=== PATIENT | female | born 1960 | race Caucasian/White ===

== ENCOUNTER → 2017-09-16 | Outpatient (CLI) | payer OTHER ==
[2017-09-16 12:45] VITALS: BP 102/69; PULSE 91; RESP 18; TEMP 98.2
--- NOTE | 2017-09-16 13:23 | P.HPIM ---
History of Present Illness H&P Date: 09/16/17 Chief Complaint: sacral and coccyx pain This is a 56-year-old patient referred by Dr. Mauricio for chronic pain in low back /hip and tailbone area that has persisted since an accident many years ago. Patient is repeatedly tearful in office describing her coccygeal pain. Patient has been taking medications from primary care physician including rare [place] and Tylenol medications with some relief, although she believes the [place] has recently begun to make her more agitated and upset. Patient denies adverse drug effects from medications. Patient also denies new-onset weakness, bowel/ bladder incontinence, or any other signs or symptoms of cauda equina syndrome. There are no signs of acute intoxication, and no indications of medication diversion or overuse. Patient notes that pain worsens significantly with standing for long periods of time and improves with rest and medication and lidocaine patches. Patient has used several types of medications for pain, including NSAIDS, OPIOIDS ([place]). Patient HAS NOT had surgery. Patient HAS NOT had injections in her spine previously. Patient HAS NOT had physical therapy recently. In addition to above, 13-point review of systems is also negative for chest pain , shortness of breath, changes in vision, changes in hearing, new onset weakness , abdominal pain, diarrhea, extreme fatigue, malaise, fever, skin changes, homicidal or suicidal ideation, or bowel or bladder incontinence. Vital Signs: Reviewed in EMR Gen: WDWN, AAOx3, NAD HEENT: NCAT, EOMI, hearing grossly normal Pulm: resp unlabored Abd: soft, NT, ND Neck: supple, trachea midline ROM in flexion lumbar spine: reduced ROM in extension lumbar spine: reduced Lumbar paravertebral tenderness: + Facet loading: + bilateral SI joint tenderness: +R side Alexandru's test: + R >> L Straight leg raise: neg Neuro: CN II-XII grossly intact, muscle strength lower extremities PRESERVED Past Medical History Smoking Status: Current every day smoker Medications and Allergies Home Medications Medication Instructions Recorded Confirmed Type Diclofenac Sodium Gel [Voltaren 4 gm TOPICAL QID PRN #1 tub 09/16/17 Rx Gel] Allergies Allergy/AdvReac Type Severity Reaction Status Date / Time hydromorphone [From Dilaudid] AdvReac Vomiting Verified 09/16/17 12:27 prednisone AdvReac Confusion Verified 09/16/17 12:28 Physical Exam Vitals: Vital Signs Temp Pulse Resp BP Pulse Ox 09/16/17 12:28 98.2 F 91 18 102/69 100 Intake and Output 09/15/17 09/16/17 09/16/17 22:59 06:59 14:59 Other: Weight 66.224 kg Patient Weight 09/17/17 06:59 Weight 66.224 kg Results Comments: MRI pelvis and without contrast dated 08/28/2017 demonstrates moderate facet arthrosis incidentally noted at L4-L5 and L5-S1 with proximal hamstring insertion tendinosis and peritendinitis bilaterally. The sacroiliac joints are preserved pelvic bones are intact there is no pelvic masses adenopathy or fluid collection noted. Assessment and Plan (1) Coccyodynia Current Visit: Yes Status: Chronic Code(s): M53.3 - SACROCOCCYGEAL DISORDERS , NOT ELSEWHERE CLASSIFIED SNOMED Code(s): 16872992 (2) SI (sacroiliac) joint dysfunction Current Visit: Yes Status: Chronic Code(s): M53.3 - SACROCOCCYGEAL DISORDERS , NOT ELSEWHERE CLASSIFIED SNOMED Code(s): 076218793 Plan: 1. Explanation: Opioid and psychological risk scores were reviewed. Diagnoses , prognoses, and multiple treatment options including but not limited to physical therapy, interventional therapies, adjuvant medical therapies, narcotic medication therapies, and surgery were discussed with the patient and all questions were answered to the patient's satisfaction. 2. Opioid agreement: no opioids prescribed today 3. Counseling: The patient was counseled extensively on SMOKING CESSATION, BODY MASS INDEX, EXERCISE. Specifically, the patient was instructed regarding the importance of smoking cessation, weight control, and exercise in the context of both chronic pain and overall health. 4. Procedures: ganglion of impar block, consider SIJ injections in future 5. Consultations: none 6. Investigations: none 7. Medications: Voltaren gel 8. Disposition: f/u for procedure as scheduled PQRS measures: 1-Patient's medications are documented in the chart. 2-Tobacco use is positive, counseling given 3-Patient has not had a pneumococcal vaccine. 4-Advanced care planning discussed, patient unable to give. 5-Opioid contract NOT signed with the patient. 6-Pain positive, follow-up visit or procedure scheduled 7-Patient's blood pressure measured and documented, and patient will follow up with the primary care due to hypertension. 8-Patient's weight was measured, and body mass index ABOVE the normal limits, and counseling was done. Patient instructed to follow up with PCP. 9-Patient WAS NOT identified as an unhealthy alcohol user.
== END | disposition home or self-care (01) ==
LOC: PNWHC3 12:21
PROVIDERS: ATTEND Anesthesiology
DX: G89.29 Other chronic pain (principal); M53.3 Sacrococcygeal disorders, not elsewhere classified; F17.200 Nicotine dependence, unspecified, uncomplicated; Z79.891 Long term (current) use of opiate analgesic; Z79.899 Other long term (current) drug therapy; Z88.8 Allergy status to other drugs, medicaments and biological substances; Z88.5 Allergy status to narcotic agent; Z71.6 Tobacco abuse counseling
CPT/HCPCS: 99211

== ENCOUNTER 2017-09-25 07:20 | Day surgery (SDC) | payer OTHER ==
[~2017-09-25 07:20] MED LIST: LACTATED RINGERS 1,000 ML IV SCH
[2017-09-25 07:55] VITALS: TEMP 97.9
[2017-09-25] MEDS ORDERED: LIDOCAINE 1% 20 ML VIAL (10MG/ML) FOR IV START INTRADERMA ONE (08:08)
--- NOTE | 2017-09-25 08:52 | P.PCN ---
Date of Procedure: 09/25/17 Surgeon: Tani Escobar Description of Procedure: PREOP DIAGNO Coccydynia POSTOP DIAGNOSIS: Coccydynia PROCEDURE: Ganglion impar block with fluoroscopic guidance ANESTHESIA: Local with 1% lidocaine; IV sedation with Versed and fentanyl. EBL:None. PROCEDURE DESCRIPTION: The patient was seen and identified in the preoperative area. Risks, benefits, complications, and alternatives were discussed with the patient. The patient agreed to proceed with the procedure and signed the consent. IV was started, and vital signs were stable. Patient was taken to the OR and time out was completed. The patient was placed in the prone position on procedure table and a pillow was placed under the abdomen to reduce lumbar lordosis.The lumbosacral area was prepped and draped in the usual sterile fashion. Critical pause was taken. Vital signs were closely monitored during the procedure. Using crosstable lateral view, the sacrococcygeal joint was identified and localized with 1% lidocaine. A 22-gauge/25-guage 3-1/2 inch needle was inserted through the sacrococcygeal ligament and advanced to the anterior aspect of the joint guided by pam-posterior and lateral fluoroscopy. Correct needle position was verified by injecting 2 ml of water soluble dye, Omnipaque 300, and observing a spread along the anterior side of the sacro-coccygeal ligament. After negative aspiration of CSF, blood, and no paresthesias, 5 mL of block solution containing 4mL of 0.5%preservative-free bupivacaine and kenalog 40 mg was injected. Needle was withdrawn intact. Skin was cleansed and bandages were applied. COMPLICATIONS: None. COMMENTS: DISPOSITION / PLANS: The patient was placed in a supine position and transferred to the recovery area in a stable condition for observation. Patient was discharged from the recovery room after meeting discharge criteria. Discharge instructions given to the patient by the staff. The patient was reexamined prior to discharge. The patient will schedule a follow up in the clinic in 2-4 weeks.
[2017-09-25] MEDS ORDERED: IV FLUID CONTINUATION 800 ML IV ONE (08:56)
[2017-09-25 09:04] VITALS: RESP 18
--- NOTE | 2017-09-25 09:26 | FL ---
Fluoroscopy INDICATION: Pain FINDINGS: Fluoroscopy time: 21 seconds. Images obtained: 3. IMPRESSIONS: 1. Documentation of fluoroscopy.
[2017-09-25 09:29] VITALS: BP 136/71; PULSE 71
== END 2017-09-25 09:42 | disposition home or self-care (01) ==
LOC: ORPAIN 07:20
PROVIDERS: ATTEND Anesthesiology
DX: G89.29 Other chronic pain (principal); M53.3 Sacrococcygeal disorders, not elsewhere classified; Z88.5 Allergy status to narcotic agent; Z88.8 Allergy status to other drugs, medicaments and biological substances; Z79.1 Long term (current) use of non-steroidal anti-inflammatories (NSAID)
CPT/HCPCS: 64999; J2250; J3301; Q9965; J3010; 99152

== ENCOUNTER 2017-10-23 06:14 | Day surgery (SDC) | payer OTHER ==
[2017-10-16 16:22] VITALS: BMI 24.0
[2017-10-23 07:20] VITALS: RESP 16; TEMP 97.6
[2017-10-23 07:23] LABS: Glucose,Whole Blood 80 mg/dL (75-99)
[2017-10-23] MEDS ORDERED: IV FLUID CONTINUATION 1,000 ML IV ONE (08:00)
--- NOTE | 2017-10-23 08:09 | P.PCN ---
Date of Procedure: 10/23/17 Procedure(s) Performed: Preoperative diagnoses= 1-coccyodynia 2-bilateral sacroiliac joint dysfunction. Postoperative diagnoses= same as preoperative diagnosis. Procedure= bilateral sacroiliac joint steroid injection under fluoroscopic guidance. Anesthesia= moderate sedation with Versed 2 mg and fentanyl 100 micrograms and local infiltration with lidocaine 1% 4 ml Estimated blood loss=minimal. Procedure indication= the patient had a history of severe chronic low back pain , and coccyx pain diagnosed with sacroiliac joint dysfunction ,unresponsive to conservative treatment. Procedure description= the patient was seen and identified in the preoperative holding area, risks and benefits and alternative of the procedure and possible complications discussed with the patient, and he agreed with the preceding, patient signed the consent, an IV was started, and vital signs were monitored and were stable throughout the procedure, patient was placed in the prone position or table and the lumbosacral area was prepped and draped with a sterile fashion, vital signs were closely monitored during the procedure, the fluoroscopy camera was placed in the contralateral oblique view on the right sacroiliac joint and the lower part of the joint was identified, local infiltration of the skin and subcutaneous tissue with lidocaine 1% 2 mL then a 22-gauge Quincke-type spinal needle advanced slowly under fluoroscopy and placed in the posterior and inferior border of the right sacroiliac joint, placement confirmed with AP and lateral view, and after appropriate needle placement confirmed and after negative aspiration for heme and CSF and there was no paresthesia during the injection, 3 ml of Marcaine 0.5% and 40 mg of Kenalog injected after negative aspiration, the needle removed, and the entire same procedure was repeated for the left sacroiliac joint Patient tolerated the procedure well without any complication, The patient returned to supine position after the back was cleaned and a Band- Aid applied, the patient transported to recovery room in stable condition and he was monitored for 30 minutes before he was discharged home and then patient was reexamined before going home and patient was discharged in stable condition and patient will follow up with the pain clinic in a few weeks
--- NOTE | 2017-10-23 08:22 | FL ---
EXAMINATION TYPE: FL guided pain mgmt statistic DATE OF EXAM: 10/23/2017 FLUOROSCOPY Fluoroscopy time of 12 seconds was used during bilateral SI joint injection. 2 image/s document/s th e procedure.
[2017-10-23 08:25] VITALS: BP 106/63; PULSE 71
== END 2017-10-23 08:38 | disposition home or self-care (01) ==
LOC: ORPAIN 06:14
PROVIDERS: ATTEND Specialist
DX: G89.29 Other chronic pain (principal); M53.3 Sacrococcygeal disorders, not elsewhere classified; Z88.5 Allergy status to narcotic agent; Z88.8 Allergy status to other drugs, medicaments and biological substances
CPT/HCPCS: J2250; J3301; J3010; G0260; 99152

== ENCOUNTER → 2017-12-11 | Outpatient (CLI) | payer OTHER ==
--- NOTE | 2017-12-11 15:11 | P.PAINPG ---
Subjective Progress Note Date: 12/11/17 Principal diagnosis: Bilateral buttocks and low back pain Objective - Vital Signs Vital signs: Intake & Output 12/10/17 12/11/17 12/11/17 18:59 06:59 18:59 Weight 64.41 kg - Exam This is a 67-year-old woman with a history of buttocks pain. She is undergone previous ganglion impar blockade as well as bilateral sacroiliac joint blockade. She reports that both of these were very helpful for her. She reports her pain is under pretty good control this time. She does receive medication management from another office. - Constitutional Constitutional Comment(s): General: The patient is alert and oriented. Patient is not sedateded Patient is a question appropriately. Cardiac: Heart is regular in rate and rhythm Respiratory: Clear to auscultation. No audible wheezes. Abdomen: Soft nontender nondistended. Lower extremities: Strength is normal bilaterally. Sensation is normal bilaterally. Reflexes are preserved and symmetric bilaterally. Straight leg raise is negative bilaterally. She is tender to palpation bilaterally over her sacroiliac joints. She is also mildly tender over her coccyx. Minimal tenderness over the facet joints bilaterally. Assessment and Plan (1) Coccyodynia Current Visit: No Status: Chronic Code(s): M53.3 - SACROCOCCYGEAL DISORDERS , NOT ELSEWHERE CLASSIFIED SNOMED Code(s): 30383918 (2) SI (sacroiliac) joint dysfunction Narrative/Plan: Plan of Care 1. Medications: Patient does not receive medications from this office. 2. Interventions: He will call our office in the future if she wishes to repeat either her ganglion impar blockade or her bilateral sacroiliac joint injections. She also has a history of coccydynia. If this is bothering her she could be seen for a bilateral coccygeal nerve block with possible follow-up radio frequency ablation 3. Referrals: None 4. Testing: None 5. Psychological: Patient denies significant anxiety or depression but does voice substantial frustration with multiple providers in the health system. Current Visit: No Status: Chronic Code(s): M53.3 - SACROCOCCYGEAL DISORDERS , NOT ELSEWHERE CLASSIFIED SNOMED Code(s): 625792998 PQRS Measure Charge Sheet Measure #130: Documentation of Current Meds in Medical Chart: Patient's medications documented in chart Measure #226: Tobacco Use: Screen & Cessation Intervention: Pt screened for tobacco use AND intervention given Measure #111: Pneumonia Vaccination: Pneumococcal vaccine NOT administered or previously given Measure #47: Advance Care Plan: Advance care planning discussed & documented, pt chose/unable to give Measure #412: Opioid Treatment Agreement: No documentation of signed opioid treatment agreement Measure #408: Opioid Therapy Follow-up Evaluation: Patient had NO f/u eval minimum every 3 months during opioid therapy Measure #317: Preventitive Care & Scrn High Bld Press & F/U: Normal blood pressure, f/u not required Measure #128: Body Mass Index (BMI) Screening & Follow-up: BMI documented within normal parameters Measure #431: Unhealthy Alcohol Use Preventative Care & Scrn: Patient not identified as an unhealthy alcohol user PQRS Narrative: Smoking Status Current every day smoker Hx Alcohol Use (MH) No Home Medications: Ambulatory Orders ALPRAZolam [Xanax] 0.5 mg PO QID 09/16/17 Acetaminophen [Tylenol Extra Strength] 500 mg PO BID 09/16/17 Celecoxib [CeleBREX] 200 mg PO DAILY 09/16/17 Cholecalciferol [Vitamin D3] 2,000 tab PO DAILY 09/16/17 Diclofenac Sodium Gel [Voltaren Gel] 4 gm TOPICAL QID PRN #1 tub 09/16/17 Gabapentin [Neurontin] 600 mg PO BID 09/16/17 L.acidoph,Paracasei, B.lactis [Probiotic] 2 cap PO BID 09/16/17 Levothyroxine Sodium 100 mcg PO DAILY 09/16/17 Ondansetron [Zofran] 4 mg PO Q6HR PRN 09/16/17 Primidone [Mysoline] 25 mg PO BID 09/16/17 tiZANidine [Zanaflex] 4 mg PO DAILY 09/16/17 oxyCODONE-APAP 5-325MG [Percocet 5-325 mg] 1 tab PO Q8HR PRN 12/11/17 Controlled Substance Measures - Controlled Substance Measures Is patient prescribed a controlled substance at discharge?: No
[2017-12-11 15:30] VITALS: BP 109/70; PULSE 81; RESP 16
== END | disposition home or self-care (01) ==
LOC: PNWHC3 14:38
PROVIDERS: ATTEND Pain Medicine Pain Medicine
DX: M53.3 Sacrococcygeal disorders, not elsewhere classified (principal); F17.200 Nicotine dependence, unspecified, uncomplicated; Z79.899 Other long term (current) drug therapy; Z79.1 Long term (current) use of non-steroidal anti-inflammatories (NSAID)
CPT/HCPCS: 99211

== ENCOUNTER 2018-02-16 09:34 | Day surgery (SDC) | payer OTHER ==
[2018-02-09 15:23] VITALS: BMI 24.0
[2018-02-16 10:01] VITALS: RESP 16; TEMP 97.7
[2018-02-16 10:11] LABS: Glucose,Whole Blood 99 mg/dL (75-99)
--- NOTE | 2018-02-16 11:05 | P.PCN ---
Date of Procedure: 02/16/18 Surgeon: Tani Escobar Pathology: none sent Condition: stable Disposition: PACU Description of Procedure: Preoperative diagnoses= 1-bilateral sacroiliitis. 2-bilateral sacroiliac joint dysfunction. Postoperative diagnoses= same as preoperative diagnosis. Procedure= bilateral sacroiliac joint steroid injection under fluoroscopic guidance. Anesthesia= conscious sedation with Versed and fentanyl and local infiltration with lidocaine 1% 4 ml Estimated blood loss=minimal. Procedure indication= the patient had a history of severe chronic low back pain , diagnosed with sacroiliitis and lumbar sacral facet arthropathy unresponsive to conservative treatment. Procedure description= the patient was seen and identified in the preoperative holding area, risks and benefits and alternative of the procedure and possible complications discussed with the patient, patient signed the consent. an IV was started, and vital signs were monitored and were stable throughout the procedure , patient was placed in the prone position or table and the lumbosacral area was prepped and draped with a sterile fashion, vital signs were closely monitored during the procedure.The right sacroiliac joint was identified on the AP view of fluoroscopy then the C-arm was tilted to the left oblique position to superimpose the anterior and posterior joint lines on each other and to have a unified joint line with the target point at the inferior one third of this line. I used 22-gauge 3-1/2 inch Quincke spinal needle for this procedure and after getting into the sacroiliac joint I injected 20 mg of Kenalog +2.5 MLS of Ropivacaine 0.5%. The same procedure was repeated on the left side by tilting the C-arm to the right oblique position this time. At the target point was also at the inferior one third of this unified joint line. Using a 22-gauge 3-1 /2 inch Quincke spinal needle I injected 20 mg of Kenalog plus 2.5 MLS of Ropivacaine 0.5%. Patient tolerated the procedure well without any complication, The patient returned to supine position after the back was cleaned and a Band- Aid applied, the patient transported to recovery room in stable condition and he was monitored for 30 minutes before he was discharged home and then patient was reexamined before going home and patient was discharged in stable condition and patient will follow up with the pain clinic in a few weeks
[2018-02-16] MEDS ORDERED: IV FLUID CONTINUATION 1,000 ML IV ONE (11:10)
[2018-02-16 11:29] VITALS: BP 106/68; PULSE 71
--- NOTE | 2018-02-16 11:34 | FL ---
EXAMINATION TYPE: FL guided pain mgmt statistic DATE OF EXAM: 02/16/2018 CLINICAL HISTORY: Sacroiliac joint pain. TECHNIQUE: Fluoroscopy. COMPARISON: None. FINDINGS: Fluoroscopic guidance was provided during pain relief procedure performed by Dr. Escobar . A total of 27 seconds of fluoroscopic time was utilized during the procedure and single spot fluoro scopic image is acquired. Single image acquired shows needle localization at inferior aspect of susp ected right sacroiliac joint. IMPRESSION: As Above.
== END 2018-02-16 11:47 | disposition home or self-care (01) ==
LOC: ORPAIN 09:34
PROVIDERS: ATTEND Anesthesiology
DX: M46.1 Sacroiliitis, not elsewhere classified (principal); G89.29 Other chronic pain; F17.200 Nicotine dependence, unspecified, uncomplicated; F41.9 Anxiety disorder, unspecified; M53.3 Sacrococcygeal disorders, not elsewhere classified
CPT/HCPCS: J2250; J3301; J3010; G0260

== ENCOUNTER 2018-04-07 14:04 | Emergency (ER) | payer OTHER ==
[2018-04-07 14:16] VITALS: BP 118/74; PULSE 98; RESP 16; TEMP 98.3
--- NOTE | 2018-04-07 15:24 | ED ---
Recheck HPI - General Chief Complaint: Recheck/Abnormal Lab/Rx Stated Complaint: med refill Time Seen by Provider: 04/07/18 14:21 Source: patient, RN notes reviewed Mode of arrival: ambulatory Limitations: no limitations - History of Present Illness Initial Comments: This is a 57-year-old female who presents to the emergency department with request for medication refill. Patient states that her primary care provider was prescribing her [place] and Xanax. Patient states that she has been on Xanax for 23 years. She states that on March 30 she received a letter in the mail stating that she was being discharged from her primary care provider's care. Patient did not understand why and did not realize that her medications would not be refilled. She states that she took her last Xanax today. She states that she has set up an appointment with a new primary care provider for this . She is very anxious about being out of her medications as she does not want to go into withdrawals. Patient states that she has always been honest and forthcoming with her medical history and the medication she takes. She states that she was told by the uniform patrol police officer of her primary care provider' s office that she misled them in regards to her pain management. Patient does admit to seeing Dr. Mauricio, orthopedic back surgeon, however does not receive any narcotic prescriptions through him. Patient states that she does have chronic back pain and has taken [place] for years and that she is not a candidate for back surgery. Denies fever, chills, chest pain, shortness of breath, abdominal pain, nausea or vomiting, numbness or tingling, headache or vision changes. - Related Data Home Medications Medication Instructions Recorded Confirmed ALPRAZolam [Xanax] 0.5 mg PO QID 09/16/17 02/09/18 Acetaminophen [Tylenol Extra 500 mg PO BID PRN 09/16/17 02/16/18 Strength] Celecoxib [CeleBREX] 200 mg PO DAILY 09/16/17 02/09/18 Cholecalciferol [Vitamin D3] 2,000 tab PO HS 09/16/17 02/09/18 Gabapentin [Neurontin] 600 mg PO QID 09/16/17 02/09/18 L.acidoph,Paracasei, B.lactis 2 cap PO BID 09/16/17 02/09/18 [Probiotic] Levothyroxine Sodium 100 mcg PO DAILY 09/16/17 02/09/18 Ondansetron [Zofran] 4 mg PO Q6HR PRN 09/16/17 02/09/18 Primidone [Mysoline] 25 mg PO BID 09/16/17 02/09/18 tiZANidine [Zanaflex] 4 mg PO DAILY 09/16/17 02/09/18 Cranberry Fruit Extract [Cranberry] 200 mg PO BID 02/09/18 02/09/18 Previous Rx's Medication Instructions Recorded Diclofenac Sodium Gel [Voltaren 4 gm TOPICAL QID PRN #1 tub 09/16/17 Gel] ALPRAZolam [Xanax] 0.5 mg PO QID 3 Days #6 tab 04/07/18 Allergies Allergy/AdvReac Type Severity Reaction Status Date / Time hydromorphone [From Dilaudid] AdvReac Vomiting Verified 02/16/18 10:03 prednisone AdvReac Confusion Verified 02/16/18 10:03 Review of Systems ROS Statement: Those systems with pertinent positive or pertinent negative responses have been documented in the HPI. ROS Other: All systems not noted in ROS Statement are negative. 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 Pleasant. HEENT: Head atraumatic, normocephalic. Pupils are equal, round and reactive to light. Extraocular movements intact. Oropharynx moist without erythema or exudate. Neck: Supple. Normal ROM. Cardiovascular: Regular rate and rhythm. No murmurs, rubs or gallops. Chest symmetrical. Respiratory: Lungs clear to auscultation bilaterally. No wheezes, rales or rhonchi. Normal respiratory effort with no use of accessory muscles. Musculoskeletal: Normal ROM, no tenderness bilateral upper and lower extremities. Ambulating normally. Skin: [place], warm and dry without rashes or lesions. Neurological: Alert and oriented x3. CN II-XII grossly intact. Speech is fluent and answers are appropriate. No focal neuro deficits. Psychiatric: Anxious and tearful. Limitations: no limitations Course Vital Signs 04/07/18 14:10 Temperature 98.3 F Pulse Rate 98 Respiratory 16 Rate Blood Pressure 118/74 O2 Sat by Pulse 98 Oximetry Medical Decision Making - Medical Decision Making This is a 57-year-old pleasant female who presents to the emergency department with request for medication refill. Patient has been on Xanax for 23 years and states that she was abruptly discharged from her primary care provider's care. She did not realize that her prescription for Xanax would not be refilled. Patient is anxious, tearful and panicky. She is nervous that she is going to go into withdrawals. She does have an appointment scheduled this with a new primary care provider's office. I educated patient about the new laws regarding controlled substances. I will provide patient with a 3 day supply of Xanax until she is able to follow-up with her new primary care provider. Patient is in agreement with this and voices understanding. Vitals are stable and she is no acute distress. She will be discharged home at this time. All questions were answered. Disposition Clinical Impression: Encounter for medication refill Disposition: HOME SELF-CARE Condition: Good Instructions: Alprazolam (By mouth) Additional Instructions: Please take medications as prescribed. As discussed, please follow-up with your new primary care provider as scheduled. Return to emergency department if symptoms should worsen or any concerns arise. Prescriptions: ALPRAZolam [Xanax] 0.5 mg PO QID 3 Days #6 tab Is patient prescribed a controlled substance at d/c from ED?: Yes When asked, does pt state using other controlled substances?: Yes If prescribed controlled substance>3 days was MAPS reviewed?: Prescribed <3 Days Referrals: Casper Yeager DO [Primary Care Provider] - 1-2 days Time of Disposition: 15:24
== END 2018-04-07 15:33 | disposition home or self-care (01) ==
LOC: EC 14:04
DX: Z76.0 Encounter for issue of repeat prescription (principal); F41.9 Anxiety disorder, unspecified; F17.200 Nicotine dependence, unspecified, uncomplicated; M54.9 Dorsalgia, unspecified; G89.29 Other chronic pain; M19.90 Unspecified osteoarthritis, unspecified site; E07.9 Disorder of thyroid, unspecified; Z85.72 Personal history of non-Hodgkin lymphomas; Z92.21 Personal history of antineoplastic chemotherapy; Z79.1 Long term (current) use of non-steroidal anti-inflammatories (NSAID); Z79.899 Other long term (current) drug therapy; Z88.5 Allergy status to narcotic agent; Z88.8 Allergy status to other drugs, medicaments and biological substances
CPT/HCPCS: 99281

== ENCOUNTER → 2018-04-21 | Outpatient (CLI) | payer OTHER ==
[2018-04-21 12:32] VITALS: BP 122/82; PULSE 109; RESP 18
--- NOTE | 2018-04-21 15:39 | P.PN ---
Subjective Progress Note Date: 04/21/18 This is a follow-up visit for this 57 years old female with a chronic history of severe low back pain diagnosed with coccygeal tenia and sacroiliac joint dysfunction, with done ganglion impar block and later on we did bilateral sacroiliac joint steroid injection, she reported that she had very short-term benefits from each injection, he continued to have severe low back pain, pain interfere with her quality of life and preventing her from doing activities of daily livings, and report that she is planning to follow up with different pain clinic, they can provide her with pain medication , because of our clinic. We do only interventional pain management Objective - Vital Signs Vital signs: Vital Signs Temp Pulse 109 H 04/21/18 12:18 Resp 18 04/21/18 12:18 BP 122/82 04/21/18 12:18 Pulse Ox 97 04/21/18 12:18 Intake & Output 04/20/18 04/21/18 04/21/18 18:59 06:59 18:59 Weight 61.689 kg - Exam Physical Examinations : 1-Constitutiona : Cooperative , not in acute distress . 2-HEENT : nech ; supple , no Lymphadenopathy , normal thyroid size . eyes : no ptosis , no icterus, no photophobia . ENT : normal of hearing , normal oropharynx , no Thrush . 3- Respiratory : Chest clear to auscultations Bilaterally , no wheezing , no Rhonchi . 4- Cardiovascular : regular rate and rhythem , S1 , S2 , no S3 , no S4. 5- Gastrointestinal : abdomen soft no tenderness , bowel sounds , no organomegally . 6- Genitourinary : Defferred . 7- neurologic : Cranial nerve II to XII intact , no focal neurological deffecit . 8-psychatric : alert , oriented X 3 , appropriate affect , intact judgment and insight . 9-Lymphatic : no Lymphadenopathy . 10- musculoskeltal : Lumber spine moter stegnth lower extremities , thigh and legs 5/5 Right side , 5/5 Left side deep tendon reflexes : normal Knee Jerk , normal ankle Jerk positive lumber facet Loading Test Sever tenderness over the Sacroiliac joint on the R and L sides sever tenderness over the coccyx area Assessment and Plan Plan: Assessment and plan= coccyodynia , billateral sacroiliac joint dysfunction Patient had short-term benefit from sacroiliac joint steroid injection and from ganglion impar block She doesn't want to proceed with any further interventional pain management, she went to get medication management only Patient wished to go to a different pain clinic to get medication management Time with Patient: Less than 30
== END | disposition home or self-care (01) ==
LOC: PNWHC3 12:05
PROVIDERS: ATTEND Specialist
DX: M53.3 Sacrococcygeal disorders, not elsewhere classified (principal); Z98.890 Other specified postprocedural states
CPT/HCPCS: 99211

== ENCOUNTER 2018-06-08 16:45 | Emergency (ER) | payer OTHER ==
[2018-06-08 17:01] VITALS: BP 116/55; PULSE 100; RESP 18; TEMP 98.2
--- NOTE | 2018-06-08 19:14 | ED ---
General Adult HPI - General Chief complaint: Recheck/Abnormal Lab/Rx Stated complaint: med refill Time Seen by Provider: 06/08/18 18:15 Source: patient, RN notes reviewed Mode of arrival: ambulatory Limitations: no limitations - History of Present Illness Initial comments: 57-year-old female presents to the emergency Department for a medication refill. Patient states she recently changed primary care physicians who adjusted her medications. Patient states she called the pharmacy for her refill of Valium and was told no prescription was sent by her primary care physician. She then called her primary care physician who cannot see her until next Friday and is unable to fill a prescription until that time. She was told to come to the emergency department for refill. Patient has no other complaints at this time including shortness of breath, chest pain, abdominal pain, nausea or vomiting, headache, or visual changes. - Related Data Home Medications Medication Instructions Recorded Confirmed Celecoxib [CeleBREX] 200 mg PO DAILY 09/16/17 04/21/18 Cholecalciferol [Vitamin D3] 2,000 tab PO HS 09/16/17 04/21/18 Gabapentin [Neurontin] 600 mg PO QID 09/16/17 04/21/18 L.acidoph,Paracasei, B.lactis 2 cap PO BID 09/16/17 04/21/18 [Probiotic] Levothyroxine Sodium 100 mcg PO DAILY 09/16/17 04/21/18 Ondansetron [Zofran] 4 mg PO Q6HR PRN 09/16/17 04/21/18 Primidone [Mysoline] 25 mg PO BID 09/16/17 04/21/18 Cranberry Fruit Extract [Cranberry] 200 mg PO BID 02/09/18 04/21/18 Diazepam [Valium] 1 tab PO TID 04/21/18 04/21/18 Docusate [Colace] 1 cap PO DAILY PRN 04/21/18 04/21/18 HYDROcodone/APAP 5-325MG [[place] 1 tab PO TID 04/21/18 04/21/18 5-325] Lidocaine [Aspercreme Patch] 1 patch TOPICAL DAILY PRN 04/21/18 04/21/18 Previous Rx's Medication Instructions Recorded Diclofenac Sodium Gel [Voltaren 4 gm TOPICAL QID PRN #1 tub 09/16/17 Gel] ALPRAZolam [Xanax] 0.5 mg PO QID 3 Days #6 tab 04/07/18 Diazepam [Valium] 5 mg PO TID PRN 3 Days #9 tab 06/08/18 Allergies Allergy/AdvReac Type Severity Reaction Status Date / Time acetaminophen [From Percocet] Allergy Chest Pain Verified 06/08/18 17:01 oxycodone [From Percocet] Allergy Chest Pain Verified 06/08/18 17:01 hydromorphone [From Dilaudid] AdvReac Vomiting Verified 06/08/18 17:01 prednisone AdvReac Confusion Verified 06/08/18 17:01 Review of Systems ROS Statement: Those systems with pertinent positive or pertinent negative responses have been documented in the HPI. ROS Other: All systems not noted in ROS Statement are negative. 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 History of Any Multi-Drug Resistant Organisms: None Reported Past Surgical History: Breast Surgery, Hysterectomy Additional Past Surgical History / Comment(s): breast reduction, access port for chemo then removed Past Anesthesia/Blood Transfusion Reactions: No Reported Reaction Past Psychological History: Anxiety Smoking Status: Current every day smoker Past Alcohol Use History: None Reported Past Drug Use History: Marijuana - Past Family History Mother History Unknown: Yes Family Medical History: No Reported History General Exam Limitations: no limitations General appearance: alert, in no apparent distress Head exam: Present: atraumatic, normocephalic, normal inspection Eye exam: Present: normal appearance, PERRL, EOMI. Absent: scleral icterus, conjunctival injection, periorbital swelling ENT exam: Present: normal exam, mucous membranes moist Neck exam: Present: normal inspection, full ROM. Absent: tenderness, meningismus, lymphadenopathy Respiratory exam: Present: normal lung sounds bilaterally. Absent: respiratory distress, wheezes, rales, rhonchi, stridor Cardiovascular Exam: Present: regular rate, normal rhythm, normal heart sounds. Absent: systolic murmur, diastolic murmur, rubs, gallop, clicks Neurological exam: Present: alert, oriented X3, CN II-XII intact Psychiatric exam: Present: anxious Course Vital Signs 06/08/18 16:57 Temperature 98.2 F Pulse Rate 100 Respiratory 18 Rate Blood Pressure 116/55 O2 Sat by Pulse 98 Oximetry Medical Decision Making - Medical Decision Making 57-year-old female presents to the emergency department for a chief complaint medication refill. Patient is out of her Valium. She recently switched prescribers and was not aware she needed to make another appointment to have a refill. Exam is benign. Vitals are stable. Patient will be given a three-day supply of Valium. I discussed with patient that she needs to follow-up with her primary for any additional refills. She states she will follow up next Friday when her primary is back in the office. She states she is not sure what she will do for the rest of the week. I stated she would likely not receive another refill from this emergency department and patient is aware. Disposition Clinical Impression: Encounter for medication refill Disposition: HOME SELF-CARE Condition: Good Instructions: Medicine Refill (ED) Additional Instructions: Please follow up with primary care for additional medication refills. Please return to the emergency department if you have any other concerns. Prescriptions: Diazepam [Valium] 5 mg PO TID PRN 3 Days #9 tab PRN Reason: Anxiety Is patient prescribed a controlled substance at d/c from ED?: Yes When asked, does pt state using other controlled substances?: Yes If prescribed controlled substance>3 days was MAPS reviewed?: Prescribed <3 Days Referrals: Casper Yeager DO [Primary Care Provider] - 1-2 days Time of Disposition: 19:12
== END 2018-06-08 19:20 | disposition home or self-care (01) ==
LOC: EC 16:45
DX: Z76.0 Encounter for issue of repeat prescription (principal); M19.90 Unspecified osteoarthritis, unspecified site; E07.9 Disorder of thyroid, unspecified; F41.9 Anxiety disorder, unspecified; F17.200 Nicotine dependence, unspecified, uncomplicated; Z85.72 Personal history of non-Hodgkin lymphomas; Z92.21 Personal history of antineoplastic chemotherapy; Z90.710 Acquired absence of both cervix and uterus; Z98.890 Other specified postprocedural states; Z79.1 Long term (current) use of non-steroidal anti-inflammatories (NSAID); Z79.891 Long term (current) use of opiate analgesic; Z79.899 Other long term (current) drug therapy; Z88.5 Allergy status to narcotic agent; Z88.8 Allergy status to other drugs, medicaments and biological substances
CPT/HCPCS: 99281

== ENCOUNTER 2018-08-25 17:11 | Emergency (ER) | payer BC, OTHER ==
--- NOTE | 2018-08-25 20:03 | ED ---
General Adult HPI - General Chief complaint: Recheck/Abnormal Lab/Rx Stated complaint: palpitations/SOB Time Seen by Provider: 08/25/18 19:40 Source: patient Mode of arrival: wheelchair Limitations: no limitations - History of Present Illness Initial comments: This 57-year-old white female presents with a complaint of developing some palpitations lists started this morning. She states that she had a fluttering type sensation in her chest. She also felt somewhat short of breath and then relates that she's had some chest burning intermittently over the past 2 days. She has a long history of anxiety and thought that this could be related to anxiety and states that she took an extra Xanax medication. She now states that the palpitations have been easing up. She does not have any chest pain currently. She has multiple complaints and these do include a chronic problem of some abdominal pain and bloating for which she is being followed up with her primary care physician for. Her symptoms have been unchanged and she is instructed to continue with her follow-up through primary care. She apparently is to have a pelvic ultrasound scheduled as written out per her primary care physician in this regard. No other complaints or modifying factors. She denies any fevers or chills. - Related Data Home Medications Medication Instructions Recorded Confirmed Celecoxib [CeleBREX] 200 mg PO DAILY 09/16/17 08/25/18 Cholecalciferol [Vitamin D3] 2,000 tab PO HS 09/16/17 08/25/18 Gabapentin [Neurontin] 600 mg PO QID 09/16/17 08/25/18 L.acidoph,Paracasei, B.lactis 2 cap PO BID 09/16/17 08/25/18 [Probiotic] Levothyroxine Sodium 100 mcg PO DAILY 09/16/17 08/25/18 Ondansetron [Zofran] 4 mg PO Q6HR PRN 09/16/17 08/25/18 Cranberry Fruit Extract [Cranberry] 400 mg PO BID 02/09/18 08/25/18 Docusate [Colace] 1 cap PO DAILY PRN 04/21/18 08/25/18 HYDROcodone/APAP 5-325MG [[place] 1 tab PO BID 04/21/18 08/25/18 5-325] Lidocaine [Aspercreme Patch] 1 patch TOPICAL DAILY PRN 04/21/18 08/25/18 ALPRAZolam [Xanax] 0.5 mg PO TID 08/25/18 08/25/18 Albuterol Sulfate [Proair Hfa] 2 puff INHALATION RT-Q6H PRN 08/25/18 08/25/18 Methocarbamol [Robaxin] 500 mg PO DAILY@1600 08/25/18 08/25/18 Primidone [Mysoline] 50 mg PO DAILY 08/25/18 08/25/18 Ranitidine HCl 150 mg PO DAILY@1600 08/25/18 08/25/18 metroNIDAZOLE [Flagyl] 500 mg PO BID 08/25/18 08/25/18 Allergies Allergy/AdvReac Type Severity Reaction Status Date / Time acetaminophen [From Percocet] AdvReac Chest Pain Verified 08/25/18 19:36 hydromorphone [From Dilaudid] AdvReac Vomiting Verified 08/25/18 19:36 oxycodone [From Percocet] AdvReac Chest Pain Verified 08/25/18 19:36 prednisone AdvReac Confusion Verified 08/25/18 19:36 Review of Systems ROS Statement: Those systems with pertinent positive or pertinent negative responses have been documented in the HPI. ROS Other: All systems not noted in ROS Statement are negative. 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 History of Any Multi-Drug Resistant Organisms: None Reported Past Surgical History: Breast Surgery, Hysterectomy Additional Past Surgical History / Comment(s): breast reduction, access port for chemo then removed Past Anesthesia/Blood Transfusion Reactions: No Reported Reaction Past Psychological History: Anxiety Smoking Status: Current every day smoker Past Alcohol Use History: None Reported Past Drug Use History: Marijuana - Past Family History Mother History Unknown: Yes Family Medical History: No Reported History General Exam - General Exam Comments Initial Comments: GENERAL: The patient is well nourished and well hydrated. VITAL SIGNS: Heart rate, blood pressure, respiratory rate reviewed as recorded in nurse's notes. EYES: Pupils are round and reactive. Extraocular movements are intact. No conjunctival / lid redness or swelling. ENT: No external evidence of injury, swelling, or ecchymosis. Airway is patent. Throat is clear. NECK: Nontender. No swelling or evidence of injury. No subcutaneous emphysema. Trachea is midline. No thyroid mass. HEART: Regular rate and rhythm. Good peripheral pulses. LUNGS/CHEST: Breath sounds clear and equal bilaterally. No rales, rhonchi, or wheezes. No ecchymosis, subcutaneous emphysema, or tenderness. ABDOMEN: Abdomen soft mild diffuse tenderness. No palpable masses or organomegaly. No peritoneal signs. No abdominal wall swelling or ecchymosis. EXTREMITIES: No extremity tenderness. Normal muscle tone and function. No thoracolumbar tenderness. NEUROLOGIC: Sensation is grossly intact. Cranial nerve exam reveals face is symmetrical, tongue is midline, speech is clear. SKIN: No abrasions or ecchymosis is noted. No induration or masses noted. PSYCHIATRIC: Alert and oriented. Appears somewhat anxious at times. Limitations: no limitations Course Vital Signs 08/25/18 17:39 Temperature 98.2 F Pulse Rate 78 Respiratory 18 Rate Blood Pressure 118/70 O2 Sat by Pulse 97 Oximetry Medical Decision Making - Medical Decision Making The patient was seen and examined. All diagnostics are reviewed. The EKG shows a normal sinus rhythm at a rate of 76. The EKG does not show any ST elevation. There is no acute ST-T wave changes noted. The TN intervals 154, QRS duration is 86, and the QTC intervals 443. The chest x-ray did not show any acute abnormalities. The laboratory analysis was all essentially within normal limits. Overall, it is felt as though she does have some decent anxiety. Old records were reviewed and it does appear that she's had anxiety problems in the past. She states that she was just started on Zoloft approximately 4 days ago and she is waiting for this to be effective. She is on benzodiazepines as well. She does not appear to be in any significant distress whatsoever. Is felt as though her symptoms of the palpitations chest pain and shortness of breath or likely related to the anxiety. She does have additional testing ordered for her chronic lower abdominal pain. She apparently needs to schedule a pelvic ultrasound and has been referred to OB/ [facility] by her primary care physician. She also has followed up with Dr. Whittington from cardiology in the past and apparently is due for an echocardiogram in the near future is instructed that she should follow back up with Dr. Brown as well in regard to her symptoms. Return parameters are discussed and she leaves in no distress. - Lab Data Result diagrams: 08/25/18 20:30 08/25/18 20:30 Lab Results 08/25/18 08/25/18 08/25/18 Range/Units 20:30 20:30 20:30 WBC 8.6 (3.8-10.6) k/uL RBC 4.68 (3.80-5.40) m/uL Hgb 15.0 (11.4-16.0) gm/dL Hct 44.8 (34.0-46.0) % MCV 95.7 (80.0-100.0) fL MCH 32.2 (25.0-35.0) pg MCHC 33.6 (31.0-37.0) g/dL RDW 12.4 (11.5-15.5) % Plt Count 182 (150-450) k/uL Neutrophils % 70 % Lymphocytes % 23 % Monocytes % 4 % Eosinophils % 2 % Basophils % 0 % Neutrophils # 6.0 (1.3-7.7) k/uL Lymphocytes # 2.0 (1.0-4.8) k/uL Monocytes # 0.3 (0-1.0) k/uL Eosinophils # 0.1 (0-0.7) k/uL Basophils # 0.0 (0-0.2) k/uL PT (9.0-12.0) sec INR (<1.2) APTT (22.0-30.0) sec Sodium 142 (137-145) mmol/L Potassium 4.0 (3.5-5.1) mmol/L Chloride 106 (98-107) mmol/L Carbon Dioxide 26 (22-30) mmol/L Anion Gap 10 mmol/L BUN 14 (7-17) mg/dL Creatinine 0.73 (0.52-1.04) mg/dL Est GFR (CKD-EPI)AfAm >90 (>60 ml/min/1.73 sqM) Est GFR (CKD-EPI)NonAf >90 (>60 ml/min/1.73 sqM) Glucose 84 (74-99) mg/dL Calcium 9.4 (8.4-10.2) mg/dL Magnesium 2.0 (1.6-2.3) mg/dL Total Bilirubin 0.4 (0.2-1.3) mg/dL AST 27 (14-36) U/L ALT 36 (9-52) U/L Alkaline Phosphatase 55 (38-126) U/L Troponin I (0.000-0.034) ng/mL NT-Pro-B Natriuret Pep 163 pg/mL Total Protein 6.8 (6.3-8.2) g/dL Albumin 4.4 (3.5-5.0) g/dL 08/25/18 08/25/18 Range/Units 20:30 20:30 WBC (3.8-10.6) k/uL RBC (3.80-5.40) m/uL Hgb (11.4-16.0) gm/dL Hct (34.0-46.0) % MCV (80.0-100.0) fL MCH (25.0-35.0) pg MCHC (31.0-37.0) g/dL RDW (11.5-15.5) % Plt Count (150-450) k/uL Neutrophils % % Lymphocytes % % Monocytes % % Eosinophils % % Basophils % % Neutrophils # (1.3-7.7) k/uL Lymphocytes # (1.0-4.8) k/uL Monocytes # (0-1.0) k/uL Eosinophils # (0-0.7) k/uL Basophils # (0-0.2) k/uL PT 10.5 (9.0-12.0) sec INR 1.0 (<1.2) APTT 22.5 (22.0-30.0) sec Sodium (137-145) mmol/L Potassium (3.5-5.1) mmol/L Chloride (98-107) mmol/L Carbon Dioxide (22-30) mmol/L Anion Gap mmol/L BUN (7-17) mg/dL Creatinine (0.52-1.04) mg/dL Est GFR (CKD-EPI)AfAm (>60 ml/min/1.73 sqM) Est GFR (CKD-EPI)NonAf (>60 ml/min/1.73 sqM) Glucose (74-99) mg/dL Calcium (8.4-10.2) mg/dL Magnesium (1.6-2.3) mg/dL Total Bilirubin (0.2-1.3) mg/dL AST (14-36) U/L ALT (9-52) U/L Alkaline Phosphatase (38-126) U/L Troponin I <0.012 (0.000-0.034) ng/mL NT-Pro-B Natriuret Pep pg/mL Total Protein (6.3-8.2) g/dL Albumin (3.5-5.0) g/dL Disposition Clinical Impression: Chest pain, Dyspnea, Anxiety, Chronic abdominal pain, Palpitations Disposition: HOME SELF-CARE Condition: Good Instructions (If sedation given, give patient instructions): Chest Pain (ED), Abdominal Pain (ED), Anxiety (ED) Is patient prescribed a controlled substance at d/c from ED?: No Referrals: Casper Yeager DO [Primary Care Provider] - 1-2 days Ro Whittington MD [STAFF PHYSICIAN] - 1-2 days Time of Disposition: 22:48
--- NOTE | 2018-08-25 20:19 | XR ---
EXAMINATION: XR chest 2V DATE AND TIME: 08/25/2018 8:07 PM CLINICAL INDICATION: PHH; Chest Pain TECHNIQUE: Departmental protocol COMPARISON: None FINDINGS: The lungs are clear. The pleural spaces are negative. The cardiac silhouette is not enlarged. The remainder of the mediastinal silhouette is unremarkable. The skeletal structures and soft tissues are negative for acute findings. IMPRESSION: NO ACUTE PROCESS.
[2018-08-25 20:58] LABS: Basophils % (A) 0 %; Eosinophils # (A) 0.1 k/uL (0-0.7); Eosinophils % (A) 2 %; HCT 44.8 % (34.0-46.0); Lymphocytes % (A) 23 %; MCH 32.2 pg (25.0-35.0); MCHC 33.6 g/dL (31.0-37.0); MCV 95.7 fL (80.0-100.0); Mean Platelet Volume 6.8; Monocytes # (A) 0.3 k/uL (0-1.0); Monocytes % (A) 4 %; Neutrophils % (A) 70 %; Platelet Count 182 k/uL (150-450); RBC 4.68 m/uL (3.80-5.40); RDW 12.4 % (11.5-15.5); WBC 8.6 k/uL (3.8-10.6)
[2018-08-25 21:05] LABS: Partial Thromboplastin Time 22.5 sec (22.0-30.0); Prothrombin Time 10.5 sec (9.0-12.0)
[2018-08-25 21:07] LABS: ALT 36 U/L (9-52); AST 27 U/L (14-36); Albumin 4.4 g/dL (3.5-5.0); Alkaline Phosphatase 55 U/L (38-126); Anion Gap 10 mmol/L; Blood Urea Nitrogen 14 mg/dL (7-17); Calcium 9.4 mg/dL (8.4-10.2); Carbon Dioxide 26 mmol/L (22-30); Chloride 106 mmol/L (98-107); Glucose 84 mg/dL (74-99); Sodium 142 mmol/L (137-145); Total Bilirubin 0.4 mg/dL (0.2-1.3); Total Protein 6.8 g/dL (6.3-8.2)
[2018-08-25 23:01] VITALS: RESP 16
[2018-08-25 23:02] VITALS: BP 120/87; PULSE 72; TEMP 98.1
== END 2018-08-25 23:01 | disposition home or self-care (01) ==
LOC: EC 17:11
DX: F41.9 Anxiety disorder, unspecified (principal); R07.9 Chest pain, unspecified; R06.02 Shortness of breath; G89.29 Other chronic pain; R10.30 Lower abdominal pain, unspecified; R14.0 Abdominal distension (gaseous); E07.9 Disorder of thyroid, unspecified; M19.90 Unspecified osteoarthritis, unspecified site; F17.200 Nicotine dependence, unspecified, uncomplicated; Z88.5 Allergy status to narcotic agent; Z88.6 Allergy status to analgesic agent; Z88.8 Allergy status to other drugs, medicaments and biological substances; Z79.1 Long term (current) use of non-steroidal anti-inflammatories (NSAID); Z79.890 Hormone replacement therapy; Z79.891 Long term (current) use of opiate analgesic; Z79.899 Other long term (current) drug therapy; Z85.72 Personal history of non-Hodgkin lymphomas; Z92.21 Personal history of antineoplastic chemotherapy; Z92.3 Personal history of irradiation; Z87.448 Personal history of other diseases of urinary system; Z87.19 Personal history of other diseases of the digestive system
CPT/HCPCS: 36415; 71046; 80053; 83735; 83880; 84484; 85025; 85610; 85730; 93005; 99285

== ENCOUNTER → 2018-08-31 | Outpatient (CLI) | payer BC ==
--- NOTE | 2018-08-31 14:38 | US ---
EXAMINATION TYPE: US pelvic limited DATE OF EXAM: 08/31/2018 COMPARISON: NONE CLINICAL HISTORY: R10.2 Pelvic and perineal pain. TECHNIQUE: Transabdominal (TA). Transabdominal sonographic images of the pelvis were acquired. Date of LMP: Hysterectomy EXAM MEASUREMENTS: 1. Uterus: Surgically absent 2. Endometrium: Surgically absent 3. Right Ovary: Surgically absent 4. Left Ovary: Surgically absent 5. Bilateral Adnexa: wnl, no masses or lesions seen 6. Posterior cul-de-sac: no free fluid Urinary bladder is sonolucent. Posterior wall is normal. Bilateral ureteral jets are evident. IMPRESSION: 1. Normal postsurgical pelvic ultrasound
== END | disposition home or self-care (01) ==
LOC: RADUSWWP 11:50
PROVIDERS: ATTEND Family Medicine
DX: R10.2 Pelvic and perineal pain (principal); Z90.710 Acquired absence of both cervix and uterus
CPT/HCPCS: 76857

== ENCOUNTER 2019-01-06 14:57 | Emergency (ER) | payer BC ==
[2019-01-06] MEDS ORDERED: SODIUM CHLORIDE 0.9% 1,000 ML IV STA (15:05)
[2019-01-06] MEDS ORDERED: METOCLOPRAMIDE 5 MG/ML 2 ML VIAL IVP STA (15:13)
[2019-01-06] MEDS ORDERED: MORPHINE SULFATE 4 MG/ML SYRINGE IVP STA (15:13)
[2019-01-06 15:38] LABS: Basophils % (A) 0 %; Eosinophils # (A) 0.1 k/uL (0-0.7); Eosinophils % (A) 1 %; HCT 48.5 % (34.0-46.0); HGB 16.1 gm/dL (11.4-16.0); Lymphocytes # (A) 1.6 k/uL (1.0-4.8); Lymphocytes % (A) 13 %; MCH 31.7 pg (25.0-35.0); MCHC 33.1 g/dL (31.0-37.0); MCV 95.9 fL (80.0-100.0); Mean Platelet Volume 7.3; Monocytes # (A) 0.6 k/uL (0-1.0); Monocytes % (A) 5 %; Neutrophils # (A) 10.2 k/uL (1.3-7.7); Neutrophils % (A) 80 %; Platelet Count 230 k/uL (150-450); RBC 5.06 m/uL (3.80-5.40); WBC 12.7 k/uL (3.8-10.6)
[2019-01-06 15:40] LABS: Amorphous Sediment,Urine Occasional /hpf; Appearance,Urine Clear (Clear); Bacteria,Urine Rare /hpf; Bilirubin,Urine Negative (Negative); Blood,Urine Small (Negative); Color,Urine Yellow; Glucose,Urine (UA) Negative (Negative); Ketones,Urine Trace (Negative); Leukocyte Esterase,Urine Small (Negative); Mucus,Urine Rare /hpf; Nitrite,Urine Negative (Negative); Protein,Urine Negative (Negative); RBC,Urine 7 /hpf (0-5); Squamous Epithelial Cell,Urine 2 /hpf (0-4)
[2019-01-06 15:43] LABS: ALT 20 U/L (9-52); AST 22 U/L (14-36); African American GFR (CKD) >90 (>60 ml/min/1.73 sqM); Albumin 4.9 g/dL (3.5-5.0); Alkaline Phosphatase 74 U/L (38-126); Anion Gap 12 mmol/L; Blood Urea Nitrogen 14 mg/dL (7-17); Calcium 9.3 mg/dL (8.4-10.2); Carbon Dioxide 26 mmol/L (22-30); Chloride 102 mmol/L (98-107); Glucose 88 mg/dL (74-99); Lipase 88 U/L (23-300); Potassium 4.1 mmol/L (3.5-5.1); Sodium 140 mmol/L (137-145); Total Bilirubin 0.4 mg/dL (0.2-1.3); Total Protein 7.3 g/dL (6.3-8.2)
--- NOTE | 2019-01-06 16:11 | CT ---
EXAMINATION TYPE: CT abdomen pelvis w con DATE OF EXAM: 01/06/2019 COMPARISON: None available HISTORY: generalized pain with known pancreatic cyst. CT DLP: 642.6 mGycm Automated exposure control for dose reduction was used. TECHNIQUE: Helical acquisition of images from the lung bases through the pelvis have been completed. CONTRAST: Performed without Oral Contrast and with IV Contrast, patient injected with 100 mL of Isovue 300. FINDINGS: LUNG BASES: No significant abnormality is appreciated. AORTA: There are some atheromatous changes present. No aneurysm or dissection in the visualized abdo barbara aorta. LIVER/GB: No significant abnormality is appreciated. PANCREAS: There is a hypodense focus at the pancreatic tail measuring 18 mm and showing Hounsfield un its of approximately 21. SPLEEN: No significant abnormality is seen. ADRENALS: No significant abnormality is seen. KIDNEYS: No significant abnormality is seen. REPRODUCTIVE ORGANS: Not seen BOWEL: Extensive diverticular changes seen within the sigmoid colon. Transverse colon shows probable wall thickening, difficult to exclude a mucosal lesion within the colon, the appendix is normal FREE AIR: No Free Air visible. ASCITES: None visible. PELVIC ADENOPATHY: None visualized. RETROPERITONEAL ADENOPATHY: No Retroperitoneal Adenopathy visible. URINARY BLADDER: Not distended OSSEOUS STRUCTURES: No significant abnormality is seen. IMPRESSION: CORRELATE FOR POSSIBLE COLITIS. INDETERMINATE CYSTIC PANCREATIC LESION. FOLLOW-UP RECOMMENDED, DIVERT ICULOSIS.
--- NOTE | 2019-01-06 16:33 | ED ---
Abdominal Pain HPI - General Chief Complaint: Abdominal Pain Stated Complaint: abd pain/nausea Time Seen by Provider: 01/06/19 15:05 Source: patient, RN notes reviewed Mode of arrival: ambulatory Limitations: no limitations - History of Present Illness Initial Comments: 58-year-old female presents emergency Department with chief complaint of abdominal pain worsened last 2 weeks. Patient had ongoing nausea with intermittent vomiting and constipation. Patient states she just feels miserable she does have underlying diverticulosis. Patient also has a history of breast cancer and has a prior abdominal surgeries. Patient has no dysuria no hematuria denies fevers or chills denies chest pain or shortness breath. Patient states she just feels miserable and rundown at this time. - Related Data Home Medications Medication Instructions Recorded Confirmed Celecoxib [CeleBREX] 200 mg PO DAILY 09/16/17 08/25/18 Cholecalciferol [Vitamin D3] 2,000 tab PO HS 09/16/17 08/25/18 Gabapentin [Neurontin] 600 mg PO QID 09/16/17 08/25/18 L.acidoph,Paracasei, B.lactis 2 cap PO BID 09/16/17 08/25/18 [Probiotic] Levothyroxine Sodium 100 mcg PO DAILY 09/16/17 08/25/18 Ondansetron [Zofran] 4 mg PO Q6HR PRN 09/16/17 08/25/18 Cranberry Fruit Extract [Cranberry] 400 mg PO BID 02/09/18 08/25/18 Docusate [Colace] 1 cap PO DAILY PRN 04/21/18 08/25/18 HYDROcodone/APAP 5-325MG [[place] 1 tab PO BID 04/21/18 08/25/18 5-325] Lidocaine [Aspercreme Patch] 1 patch TOPICAL DAILY PRN 04/21/18 08/25/18 ALPRAZolam [Xanax] 0.5 mg PO TID 08/25/18 08/25/18 Albuterol Sulfate [Proair Hfa] 2 puff INHALATION RT-Q6H PRN 08/25/18 08/25/18 Methocarbamol [Robaxin] 500 mg PO DAILY@1600 08/25/18 08/25/18 Primidone [Mysoline] 50 mg PO DAILY 08/25/18 08/25/18 Ranitidine HCl 150 mg PO DAILY@1600 08/25/18 08/25/18 metroNIDAZOLE [Flagyl] 500 mg PO BID 08/25/18 08/25/18 Previous Rx's Medication Instructions Recorded Ciprofloxacin HCl [Cipro] 500 mg PO Q12HR #20 tablet 01/06/19 Metoclopramide [Reglan] 10 mg PO TID PRN #15 tab 01/06/19 metroNIDAZOLE [Flagyl] 500 mg PO TID #30 tab 01/06/19 Allergies Allergy/AdvReac Type Severity Reaction Status Date / Time acetaminophen [From Percocet] AdvReac Chest Pain Verified 01/06/19 15:02 hydromorphone [From Dilaudid] AdvReac Vomiting Verified 01/06/19 15:02 oxycodone [From Percocet] AdvReac Chest Pain Verified 01/06/19 15:02 prednisone AdvReac Confusion Verified 01/06/19 15:02 Review of Systems ROS Statement: Those systems with pertinent positive or pertinent negative responses have been documented in the HPI. ROS Other: All systems not noted in ROS Statement are negative. 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 History of Any Multi-Drug Resistant Organisms: None Reported Past Surgical History: Breast Surgery, Hysterectomy Additional Past Surgical History / Comment(s): breast reduction, access port for chemo then removed Past Anesthesia/Blood Transfusion Reactions: No Reported Reaction Past Psychological History: Anxiety Smoking Status: Current every day smoker Past Alcohol Use History: None Reported Past Drug Use History: Marijuana - Past Family History Mother History Unknown: Yes Family Medical History: No Reported History General Exam Limitations: no limitations General appearance: alert, in no apparent distress Head exam: Present: atraumatic, normocephalic, normal inspection ENT exam: Present: normal exam, mucous membranes moist Neck exam: Present: normal inspection. Absent: tenderness, meningismus, lymphadenopathy Respiratory exam: Present: normal lung sounds bilaterally. Absent: respiratory distress, wheezes, rales, rhonchi, stridor Cardiovascular Exam: Present: regular rate, normal rhythm, normal heart sounds. Absent: systolic murmur, diastolic murmur, rubs, gallop, clicks GI/Abdominal exam: Present: soft, distended, tenderness, normal bowel sounds. Absent: guarding, rebound, rigid Course Vital Signs 01/06/19 14:59 Temperature 98.6 F Pulse Rate 102 H Respiratory 18 Rate Blood Pressure 111/71 O2 Sat by Pulse 99 Oximetry - Reevaluation(s) Reevaluation #1: 01/06/19 16:29 Patient feels improved after the antiemetics and pain meds, updated on lab results Medical Decision Making - Medical Decision Making 58 show female presented for abdominal pain. Patient CT shows evidence of colitis, pancreatic cyst in which patient notes about. Patient does feel improved at this time she was offered admission given her ongoing symptoms patient declines will be treated for colitis, diverticular outpatient return parameters were discussed. - Lab Data Result diagrams: 01/06/19 15:20 01/06/19 15:20 Lab Results 01/06/19 01/06/19 01/06/19 Range/Units 15:20 15:20 15:20 WBC 12.7 H (3.8-10.6) k/uL RBC 5.06 (3.80-5.40) m/uL Hgb 16.1 H (11.4-16.0) gm/dL Hct 48.5 H (34.0-46.0) % MCV 95.9 (80.0-100.0) fL MCH 31.7 (25.0-35.0) pg MCHC 33.1 (31.0-37.0) g/dL RDW 14.0 (11.5-15.5) % Plt Count 230 (150-450) k/uL Neutrophils % 80 % Lymphocytes % 13 % Monocytes % 5 % Eosinophils % 1 % Basophils % 0 % Neutrophils # 10.2 H (1.3-7.7) k/uL Lymphocytes # 1.6 (1.0-4.8) k/uL Monocytes # 0.6 (0-1.0) k/uL Eosinophils # 0.1 (0-0.7) k/uL Basophils # 0.0 (0-0.2) k/uL Sodium 140 (137-145) mmol/L Potassium 4.1 (3.5-5.1) mmol/L Chloride 102 (98-107) mmol/L Carbon Dioxide 26 (22-30) mmol/L Anion Gap 12 mmol/L BUN 14 (7-17) mg/dL Creatinine 0.78 (0.52-1.04) mg/dL Est GFR (CKD-EPI)AfAm >90 (>60 ml/min/1.73 sqM) Est GFR (CKD-EPI)NonAf 86 (>60 ml/min/1.73 sqM) Glucose 88 (74-99) mg/dL Plasma Lactic Acid Lasha 1.7 (0.7-2.0) mmol/L Calcium 9.3 (8.4-10.2) mg/dL Total Bilirubin 0.4 (0.2-1.3) mg/dL AST 22 (14-36) U/L ALT 20 (9-52) U/L Alkaline Phosphatase 74 (38-126) U/L Total Protein 7.3 (6.3-8.2) g/dL Albumin 4.9 (3.5-5.0) g/dL Lipase 88 (23-300) U/L Urine Color Urine Appearance (Clear) Urine pH (5.0-8.0) Ur Specific [place] (1.001-1.035) Urine Protein (Negative) Urine Glucose (UA) (Negative) Urine Ketones (Negative) Urine Blood (Negative) Urine Nitrite (Negative) Urine Bilirubin (Negative) Urine Urobilinogen (<2.0) mg/dL Ur Leukocyte Esterase (Negative) Urine RBC (0-5) /hpf Urine WBC (0-5) /hpf Ur Squamous Epith Cells (0-4) /hpf Amorphous Sediment (None) /hpf Urine Bacteria (None) /hpf Urine Mucus (None) /hpf 01/06/19 Range/Units 15:20 WBC (3.8-10.6) k/uL RBC (3.80-5.40) m/uL Hgb (11.4-16.0) gm/dL Hct (34.0-46.0) % MCV (80.0-100.0) fL MCH (25.0-35.0) pg MCHC (31.0-37.0) g/dL RDW (11.5-15.5) % Plt Count (150-450) k/uL Neutrophils % % Lymphocytes % % Monocytes % % Eosinophils % % Basophils % % Neutrophils # (1.3-7.7) k/uL Lymphocytes # (1.0-4.8) k/uL Monocytes # (0-1.0) k/uL Eosinophils # (0-0.7) k/uL Basophils # (0-0.2) k/uL Sodium (137-145) mmol/L Potassium (3.5-5.1) mmol/L Chloride (98-107) mmol/L Carbon Dioxide (22-30) mmol/L Anion Gap mmol/L BUN (7-17) mg/dL Creatinine (0.52-1.04) mg/dL Est GFR (CKD-EPI)AfAm (>60 ml/min/1.73 sqM) Est GFR (CKD-EPI)NonAf (>60 ml/min/1.73 sqM) Glucose (74-99) mg/dL Plasma Lactic Acid Lasha (0.7-2.0) mmol/L Calcium (8.4-10.2) mg/dL Total Bilirubin (0.2-1.3) mg/dL AST (14-36) U/L ALT (9-52) U/L Alkaline Phosphatase (38-126) U/L Total Protein (6.3-8.2) g/dL Albumin (3.5-5.0) g/dL Lipase (23-300) U/L Urine Color Yellow Urine Appearance Clear (Clear) Urine pH 6.0 (5.0-8.0) Ur Specific [place] 1.020 (1.001-1.035) Urine Protein Negative (Negative) Urine Glucose (UA) Negative (Negative) Urine Ketones Trace H (Negative) Urine Blood Small H (Negative) Urine Nitrite Negative (Negative) Urine Bilirubin Negative (Negative) Urine Urobilinogen 2.0 (<2.0) mg/dL Ur Leukocyte Esterase Small H (Negative) Urine RBC 7 H (0-5) /hpf Urine WBC 2 (0-5) /hpf Ur Squamous Epith Cells 2 (0-4) /hpf Amorphous Sediment Occasional H (None) /hpf Urine Bacteria Rare H (None) /hpf Urine Mucus Rare H (None) /hpf Disposition Clinical Impression: Colitis, Abdominal pain Disposition: HOME SELF-CARE Condition: Stable Instructions (If sedation given, give patient instructions): Abdominal Pain (ED) Additional Instructions: Please return to the Emergency Department if symptoms worsen or any other concerns. Prescriptions: Ciprofloxacin HCl [Cipro] 500 mg PO Q12HR #20 tablet metroNIDAZOLE [Flagyl] 500 mg PO TID #30 tab Metoclopramide [Reglan] 10 mg PO TID PRN #15 tab PRN Reason: GERD Is patient prescribed a controlled substance at d/c from ED?: No Referrals: Casper Yeager DO [Primary Care Provider] - 1-2 days Time of Disposition: 16:33
[2019-01-06 16:46] VITALS: BP 109/59; PULSE 73; RESP 16; TEMP 98
== END 2019-01-06 16:45 | disposition home or self-care (01) ==
LOC: EC 14:57
DX: K52.9 Noninfective gastroenteritis and colitis, unspecified (principal); K86.2 Cyst of pancreas; E07.9 Disorder of thyroid, unspecified; F41.9 Anxiety disorder, unspecified; F17.200 Nicotine dependence, unspecified, uncomplicated; Z85.72 Personal history of non-Hodgkin lymphomas; Z79.890 Hormone replacement therapy; Z79.899 Other long term (current) drug therapy; Z88.5 Allergy status to narcotic agent; Z88.6 Allergy status to analgesic agent; Z88.8 Allergy status to other drugs, medicaments and biological substances; Z85.3 Personal history of malignant neoplasm of breast
CPT/HCPCS: 36415; 80053; 83605; 83690; 85025; 81001; 74177; 99284; 96374; 96375; 96361; J2270; J2765; Q9967

== ENCOUNTER 2019-04-13 15:50 | Emergency (ER) | payer BC ==
[2019-04-13 16:23] VITALS: RESP 18
[2019-04-13] MEDS ORDERED: SODIUM CHLORIDE 0.9% 1,000 ML IV STA (18:21)
[2019-04-13] MEDS ORDERED: ONDANSETRON 4 MG/2 ML VIAL IVP STA (18:54)
[2019-04-13] MEDS ORDERED: MORPHINE SULFATE 4 MG/ML SYRINGE IVP STA (18:54)
--- NOTE | 2019-04-13 18:57 | ED ---
Weakness HPI - General Chief complaint: Weakness Stated complaint: lethargy Time Seen by Provider: 04/13/19 18:20 Source: patient, RN notes reviewed Mode of arrival: ambulatory Limitations: no limitations - History of Present Illness Initial comments: 58-year-old female presents emergency Department with multiple complaints. Patient states that she's had ongoing fatigue, weight loss of 7 pounds unintentional, unable to sleep, increasing pain. Patient does have chronic pain which she takes Rodney for. States that is not helping her pain. She states she has shoulder back Pain. Patient States That She's Had Increased Bloating, Distention Her Abdomen. Patient Said No Vomiting States That She Has Been Constipated Though She Went Back Normal Stool Softener Which Is Been Helping. She Has Some Urinary Pressure. She Has No Flank Pain. Denies Any Chest Pain Which She's Been Short of Breath and Is Had Exertional Shortness of Breath. She States That She Gets Winded Going Room to Room from in Her House. Patient Denies Sick Contacts No Headache No Dizziness No Neck Pain - Related Data Home Medications Medication Instructions Recorded Confirmed Celecoxib [CeleBREX] 200 mg PO DAILY PRN 09/16/17 04/13/19 Cholecalciferol [Vitamin D3] 2,000 tab PO HS 09/16/17 04/13/19 Gabapentin [Neurontin] 600 mg PO QID 09/16/17 04/13/19 L.acidoph,Paracasei, B.lactis 1 cap PO TID 09/16/17 04/13/19 [Probiotic] Ondansetron [Zofran] 4 mg PO Q6HR PRN 09/16/17 04/13/19 Cranberry Fruit Extract [Cranberry] 400 mg PO BID 02/09/18 04/13/19 Docusate [Colace] 200 mg PO BID 04/21/18 04/13/19 Lidocaine [Aspercreme Patch] 1 patch TOPICAL DAILY@199904/21/18 04/13/19 ALPRAZolam [Xanax] 0.5 mg PO QID 08/25/18 04/13/19 Methocarbamol [Robaxin] 500 mg PO HS@2100 PRN 08/25/18 04/13/19 Primidone [Mysoline] 50 mg PO DAILY 08/25/18 04/13/19 Ranitidine HCl 150 mg PO DAILY@1700 08/25/18 04/13/19 Levothyroxine Sodium [Synthroid] 88 mcg PO DAILY 01/06/19 04/13/19 Sertraline HCl [Zoloft] 50 mg PO DAILY 01/06/19 04/13/19 Hydrocodone/Acetaminophen [[place] 1 tab PO TID 04/13/19 04/13/19 7.5-325] Allergies Allergy/AdvReac Type Severity Reaction Status Date / Time acetaminophen [From Percocet] AdvReac Chest Pain Verified 04/13/19 18:57 hydromorphone [From Dilaudid] AdvReac Vomiting Verified 04/13/19 18:57 oxycodone [From Percocet] AdvReac Chest Pain Verified 04/13/19 18:57 prednisone AdvReac Confusion Verified 04/13/19 18:57 Review of Systems ROS Statement: Those systems with pertinent positive or pertinent negative responses have been documented in the HPI. ROS Other: All systems not noted in ROS Statement are negative. 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 History of Any Multi-Drug Resistant Organisms: None Reported Past Surgical History: Breast Surgery, Hysterectomy Additional Past Surgical History / Comment(s): breast reduction, access port for chemo then removed Past Anesthesia/Blood Transfusion Reactions: No Reported Reaction Past Psychological History: Anxiety Smoking Status: Current every day smoker Past Alcohol Use History: None Reported Past Drug Use History: Marijuana - Past Family History Mother History Unknown: Yes Family Medical History: No Reported History General Exam Limitations: no limitations General appearance: alert, in no apparent distress Head exam: Present: atraumatic, normocephalic, normal inspection Eye exam: Present: normal appearance, PERRL, EOMI. Absent: scleral icterus, conjunctival injection, periorbital swelling ENT exam: Present: normal exam, normal oropharynx, mucous membranes moist, TM's normal bilaterally Neck exam: Present: normal inspection, full ROM. Absent: tenderness, meningismus, lymphadenopathy Respiratory exam: Present: normal lung sounds bilaterally. Absent: respiratory distress, wheezes, rales, rhonchi, stridor Cardiovascular Exam: Present: regular rate, normal rhythm, normal heart sounds. Absent: systolic murmur, diastolic murmur, rubs, gallop, clicks GI/Abdominal exam: Present: soft, tenderness (Mild diffuse), normal bowel sounds. Absent: distended, guarding, rebound, rigid Neurological exam: Present: alert, oriented X3, CN II-XII intact, reflexes normal. Absent: motor sensory deficit Skin exam: Present: warm, dry, intact, normal color. Absent: rash Course Vital Signs 04/13/19 04/13/19 04/13/19 16:20 19:27 20:57 Temperature 98.1 F 98.4 F 98.1 F Pulse Rate 94 71 75 Respiratory 18 18 18 Rate Blood Pressure 104/65 127/75 126/77 O2 Sat by Pulse 99 99 95 Oximetry EKG Findings - EKG Comments: EKG Findings:: EKG performed at 19:40 normal sinus rhythm rate of 67 OK 172 QRS 86 QTC is QTC 422/445 Medical Decision Making - Medical Decision Making 58 show female presented for multiple complaints. Patient had a thorough workup including labs, EKG, chest x-ray. There are no acute findings. Patient has multisystem complaints and advised to follow-up with rheumatology for possible autoimmune disorder. Patient agrees this plan and will follow-up. - Lab Data Result diagrams: 04/13/19 18:35 04/13/19 18:35 Lab Results 04/13/19 04/13/19 04/13/19 Range/Units 18:35 18:35 18:35 WBC 8.7 (3.8-10.6) k/uL RBC 4.90 (3.80-5.40) m/uL Hgb 16.1 H (11.4-16.0) gm/dL Hct 47.0 H (34.0-46.0) % MCV 96.0 (80.0-100.0) fL MCH 32.9 (25.0-35.0) pg MCHC 34.3 (31.0-37.0) g/dL RDW 15.3 (11.5-15.5) % Plt Count 182 (150-450) k/uL Neutrophils % 67 % Lymphocytes % 24 % Monocytes % 5 % Eosinophils % 2 % Basophils % 1 % Neutrophils # 5.8 (1.3-7.7) k/uL Lymphocytes # 2.1 (1.0-4.8) k/uL Monocytes # 0.5 (0-1.0) k/uL Eosinophils # 0.2 (0-0.7) k/uL Basophils # 0.1 (0-0.2) k/uL PT 10.3 (9.0-12.0) sec INR 1.0 (<1.2) APTT 25.0 (22.0-30.0) sec D-Dimer 0.23 (<0.60) mg/L FEU Sodium 140 (137-145) mmol/L Potassium 4.0 (3.5-5.1) mmol/L Chloride 107 (98-107) mmol/L Carbon Dioxide 24 (22-30) mmol/L Anion Gap 9 mmol/L BUN 14 (7-17) mg/dL Creatinine 0.69 (0.52-1.04) mg/dL Est GFR (CKD-EPI)AfAm >90 (>60 ml/min/1.73 sqM) Est GFR (CKD-EPI)NonAf >90 (>60 ml/min/1.73 sqM) Glucose 75 (74-99) mg/dL Plasma Lactic Acid [place] (0.7-2.0) mmol/L Calcium 9.8 (8.4-10.2) mg/dL Phosphorus 4.1 (2.5-4.5) mg/dL Magnesium 2.2 (1.6-2.3) mg/dL Total Bilirubin 0.4 (0.2-1.3) mg/dL AST 21 (14-36) U/L ALT 12 (9-52) U/L Alkaline Phosphatase 56 (38-126) U/L Troponin I (0.000-0.034) ng/mL NT-Pro-B Natriuret Pep pg/mL Total Protein 6.7 (6.3-8.2) g/dL Albumin 4.3 (3.5-5.0) g/dL TSH 4.380 (0.465-4.680) mIU/L Urine Color Urine Appearance (Clear) Urine pH (5.0-8.0) Ur Specific [place] (1.001-1.035) Urine Protein (Negative) Urine Glucose (UA) (Negative) Urine Ketones (Negative) Urine Blood (Negative) Urine Nitrite (Negative) Urine Bilirubin (Negative) Urine Urobilinogen (<2.0) mg/dL Ur Leukocyte Esterase (Negative) Urine RBC (0-5) /hpf Urine WBC (0-5) /hpf Ur Squamous Epith Cells (0-4) /hpf Urine Mucus (None) /hpf 04/13/19 04/13/19 04/13/19 Range/Units 18:35 18:35 18:35 WBC (3.8-10.6) k/uL RBC (3.80-5.40) m/uL Hgb (11.4-16.0) gm/dL Hct (34.0-46.0) % MCV (80.0-100.0) fL MCH (25.0-35.0) pg MCHC (31.0-37.0) g/dL RDW (11.5-15.5) % Plt Count (150-450) k/uL Neutrophils % % Lymphocytes % % Monocytes % % Eosinophils % % Basophils % % Neutrophils # (1.3-7.7) k/uL Lymphocytes # (1.0-4.8) k/uL Monocytes # (0-1.0) k/uL Eosinophils # (0-0.7) k/uL Basophils # (0-0.2) k/uL PT (9.0-12.0) sec INR (<1.2) APTT (22.0-30.0) sec D-Dimer (<0.60) mg/L FEU Sodium (137-145) mmol/L Potassium (3.5-5.1) mmol/L Chloride (98-107) mmol/L Carbon Dioxide (22-30) mmol/L Anion Gap mmol/L BUN (7-17) mg/dL Creatinine (0.52-1.04) mg/dL Est GFR (CKD-EPI)AfAm (>60 ml/min/1.73 sqM) Est GFR (CKD-EPI)NonAf (>60 ml/min/1.73 sqM) Glucose (74-99) mg/dL Plasma Lactic Acid [place] 0.9 (0.7-2.0) mmol/L Calcium (8.4-10.2) mg/dL Phosphorus (2.5-4.5) mg/dL Magnesium (1.6-2.3) mg/dL Total Bilirubin (0.2-1.3) mg/dL AST (14-36) U/L ALT (9-52) U/L Alkaline Phosphatase (38-126) U/L Troponin I <0.012 (0.000-0.034) ng/mL NT-Pro-B Natriuret Pep 90 pg/mL Total Protein (6.3-8.2) g/dL Albumin (3.5-5.0) g/dL TSH (0.465-4.680) mIU/L Urine Color Urine Appearance (Clear) Urine pH (5.0-8.0) Ur Specific [place] (1.001-1.035) Urine Protein (Negative) Urine Glucose (UA) (Negative) Urine Ketones (Negative) Urine Blood (Negative) Urine Nitrite (Negative) Urine Bilirubin (Negative) Urine Urobilinogen (<2.0) mg/dL Ur Leukocyte Esterase (Negative) Urine RBC (0-5) /hpf Urine WBC (0-5) /hpf Ur Squamous Epith Cells (0-4) /hpf Urine Mucus (None) /hpf 04/13/19 Range/Units 18:35 WBC (3.8-10.6) k/uL RBC (3.80-5.40) m/uL Hgb (11.4-16.0) gm/dL Hct (34.0-46.0) % MCV (80.0-100.0) fL MCH (25.0-35.0) pg MCHC (31.0-37.0) g/dL RDW (11.5-15.5) % Plt Count (150-450) k/uL Neutrophils % % Lymphocytes % % Monocytes % % Eosinophils % % Basophils % % Neutrophils # (1.3-7.7) k/uL Lymphocytes # (1.0-4.8) k/uL Monocytes # (0-1.0) k/uL Eosinophils # (0-0.7) k/uL Basophils # (0-0.2) k/uL PT (9.0-12.0) sec INR (<1.2) APTT (22.0-30.0) sec D-Dimer (<0.60) mg/L FEU Sodium (137-145) mmol/L Potassium (3.5-5.1) mmol/L Chloride (98-107) mmol/L Carbon Dioxide (22-30) mmol/L Anion Gap mmol/L BUN (7-17) mg/dL Creatinine (0.52-1.04) mg/dL Est GFR (CKD-EPI)AfAm (>60 ml/min/1.73 sqM) Est GFR (CKD-EPI)NonAf (>60 ml/min/1.73 sqM) Glucose (74-99) mg/dL Plasma Lactic Acid [place] (0.7-2.0) mmol/L Calcium (8.4-10.2) mg/dL Phosphorus (2.5-4.5) mg/dL Magnesium (1.6-2.3) mg/dL Total Bilirubin (0.2-1.3) mg/dL AST (14-36) U/L ALT (9-52) U/L Alkaline Phosphatase (38-126) U/L Troponin I (0.000-0.034) ng/mL NT-Pro-B Natriuret Pep pg/mL Total Protein (6.3-8.2) g/dL Albumin (3.5-5.0) g/dL TSH (0.465-4.680) mIU/L Urine Color Light Yellow Urine Appearance Clear (Clear) Urine pH 5.5 (5.0-8.0) Ur Specific [place] 1.006 (1.001-1.035) Urine Protein Negative (Negative) Urine Glucose (UA) Negative (Negative) Urine Ketones Negative (Negative) Urine Blood Small H (Negative) Urine Nitrite Negative (Negative) Urine Bilirubin Negative (Negative) Urine Urobilinogen <2.0 (<2.0) mg/dL Ur Leukocyte Esterase Negative (Negative) Urine RBC 1 (0-5) /hpf Urine WBC 1 (0-5) /hpf Ur Squamous Epith Cells <1 (0-4) /hpf Urine Mucus Rare H (None) /hpf Disposition Clinical Impression: Coccyodynia, Weight loss, Abdominal bloating, Fatigue, Dyspnea Disposition: HOME SELF-CARE Condition: Stable Instructions (If sedation given, give patient instructions): Gas and Bloating (ED) Additional Instructions: Please return to the Emergency Department if symptoms worsen or any other concerns. Is patient prescribed a controlled substance at d/c from ED?: No Referrals: Casper Yeager, [Primary Care Provider] - 1-2 days Landy Graham MD [STAFF PHYSICIAN] - 1-2 days Time of Disposition: 21:27
[2019-04-13 19:09] LABS: Basophils # (A) 0.1 k/uL (0-0.2); Basophils % (A) 1 %; Eosinophils # (A) 0.2 k/uL (0-0.7); Eosinophils % (A) 2 %; HGB 16.1 gm/dL (11.4-16.0); Lymphocytes # (A) 2.1 k/uL (1.0-4.8); Lymphocytes % (A) 24 %; MCH 32.9 pg (25.0-35.0); MCHC 34.3 g/dL (31.0-37.0); Mean Platelet Volume 7.7; Monocytes # (A) 0.5 k/uL (0-1.0); Monocytes % (A) 5 %; Neutrophils # (A) 5.8 k/uL (1.3-7.7); Neutrophils % (A) 67 %; Platelet Count 182 k/uL (150-450); RDW 15.3 % (11.5-15.5); WBC 8.7 k/uL (3.8-10.6)
[2019-04-13 19:19] LABS: Appearance,Urine Clear (Clear); Bilirubin,Urine Negative (Negative); Blood,Urine Small (Negative); Color,Urine Light Yellow; Glucose,Urine (UA) Negative (Negative); Ketones,Urine Negative (Negative); Leukocyte Esterase,Urine Negative (Negative); Mucus,Urine Rare /hpf; Nitrite,Urine Negative (Negative); PH, Urine 5.5 (5.0-8.0); Protein,Urine Negative (Negative); RBC,Urine 1 /hpf (0-5); Specific Gravity,Urine 1.006 (1.001-1.035); Squamous Epithelial Cell,Urine <1 /hpf (0-4); Urobilinogen,Urine <2.0 mg/dL (<2.0)
[2019-04-13 19:20] LABS: African American GFR (CKD) >90 (>60 ml/min/1.73 sqM); Albumin 4.3 g/dL (3.5-5.0); Anion Gap 9 mmol/L; Blood Urea Nitrogen 14 mg/dL (7-17); Calcium 9.8 mg/dL (8.4-10.2); Carbon Dioxide 24 mmol/L (22-30); Chloride 107 mmol/L (98-107); Glucose 75 mg/dL (74-99); Magnesium 2.2 mg/dL (1.6-2.3); Phosphorus 4.1 mg/dL (2.5-4.5); Sodium 140 mmol/L (137-145); Total Bilirubin 0.4 mg/dL (0.2-1.3); Total Protein 6.7 g/dL (6.3-8.2)
[2019-04-13 19:21] LABS: ALT 12 U/L (9-52); AST 21 U/L (14-36); Alkaline Phosphatase 56 U/L (38-126)
[2019-04-13 19:27] LABS: D-Dimer 0.23 mg/L FEU (<0.60); Prothrombin Time 10.3 sec (9.0-12.0)
--- NOTE | 2019-04-13 20:37 | XR ---
EXAMINATION: XR chest 2V DATE AND TIME: 04/13/2019 7:15 PM CLINICAL INDICATION: PHH; Weakness, lethargy TECHNIQUE: Departmental protocol COMPARISON: 08/25/2018 FINDINGS: The lungs are clear. The pleural spaces are negative. The cardiac silhouette is not enlarged. The remainder of the mediastinal silhouette is unremarkable. The skeletal structures and soft tissues are negative for acute findings. IMPRESSION: NO ACUTE PROCESS.
--- NOTE | 2019-04-13 20:40 | XR ---
PROCEDURE: XR sacrum coccyx - 3V DATE AND TIME: 04/13/2019 7:16 PM CLINICAL INDICATION: PHH; Pain TECHNIQUE: Department protocol COMPARISON: None FINDINGS: There is no fracture or malalignment. The soft tissues are unremarkable. IMPRESSION: NO ACUTE PROCESS.
[2019-04-13 20:57] VITALS: BP 126/77; PULSE 75; TEMP 98.1
== END 2019-04-13 21:36 | disposition home or self-care (01) ==
LOC: EC 15:50
DX: M53.3 Sacrococcygeal disorders, not elsewhere classified (principal); R63.4 Abnormal weight loss; R14.0 Abdominal distension (gaseous); R53.83 Other fatigue; R06.00 Dyspnea, unspecified; R53.1 Weakness; F41.9 Anxiety disorder, unspecified; E07.9 Disorder of thyroid, unspecified; F17.200 Nicotine dependence, unspecified, uncomplicated; Z68.25 Body mass index [BMI] 25.0-25.9, adult; Z79.890 Hormone replacement therapy; Z79.899 Other long term (current) drug therapy; Z88.5 Allergy status to narcotic agent; Z88.6 Allergy status to analgesic agent; Z88.8 Allergy status to other drugs, medicaments and biological substances; Z85.72 Personal history of non-Hodgkin lymphomas
CPT/HCPCS: 99285; 96374; 96375; 96361 ×3; 36415; 93005; 85379; 83880; 80053; 84443; 83605; 83735; 84100; 84484; 85025; 85610; 85730; 81001; 72220; 71046; J2270; J2405

== ENCOUNTER 2019-06-03 16:59 | Emergency (ER) | payer BC ==
[2019-06-03 17:03] VITALS: TEMP 97.8
[2019-06-03] MEDS ORDERED: MORPHINE SULFATE 4 MG/ML SYRINGE IM STA (17:57)
--- NOTE | 2019-06-03 18:44 | ED ---
General Adult HPI - General Chief complaint: Back Pain/Injury Stated complaint: Pain Down leg from tailbone Time Seen by Provider: 06/03/19 17:05 Source: patient, RN notes reviewed, old records reviewed Mode of arrival: ambulatory Limitations: no limitations - History of Present Illness Initial comments: 58 old female patient presents to the chief complaint of lumbar and sacral back pain which has been ongoing for 2 years. Patient forced that she sees pain management for this on [employer] tendons. Patient reports that the pain is constant and unbearable. Reports that she has pain when even touch to the area. Denies any acute trauma or falls. Patient also reports some mild suprapubic discomfort abdominal bloating but has been ongoing for the same time period. Denies chest pain or shortness of breath. Patient was seen for identical symptoms in March. Patient was that she does follow up with Dr. Mauricio. Denies any other complaints. Denies any red flag symptoms. Systemic: Pt denies fatigue, fever/chills, rash. Pt denies weakness, night sweats, weight loss. Neuro: Pt denies headache, visual disturbances, syncope or pre-syncope. HEENT: Pt denies ocular discharge or irritation, otalgia, rhinorrhea, pharyngitis or notable lymphadenopathy. Cardiopulmonary: Pt denies chest pain, SOB, heart palpitations, dyspnea on exertion. Abdominal/GI: Pt denies abdominal pain, n/v/d. : Pt denies dysuria, burning w/ urination, frequency/urgency. Denies new onset urinary or bowel incontinence. MSK: Pt denies myalgia, loss of strength or function in extremities. Neuro: Pt denies new onset weakness, paresthesias. - Related Data Home Medications Medication Instructions Recorded Confirmed Celecoxib [CeleBREX] 200 mg PO DAILY PRN 09/16/17 04/13/19 Cholecalciferol [Vitamin D3] 2,000 tab PO HS 09/16/17 04/13/19 Gabapentin [Neurontin] 600 mg PO QID 09/16/17 04/13/19 L.acidoph,Paracasei, B.lactis 1 cap PO TID 09/16/17 04/13/19 [Probiotic] Ondansetron [Zofran] 4 mg PO Q6HR PRN 09/16/17 04/13/19 Cranberry Fruit Extract [Cranberry] 400 mg PO BID 02/09/18 04/13/19 Docusate [Colace] 200 mg PO BID 04/21/18 04/13/19 Lidocaine [Aspercreme Patch] 1 patch TOPICAL DAILY@199904/21/18 04/13/19 ALPRAZolam [Xanax] 0.5 mg PO QID 08/25/18 04/13/19 Methocarbamol [Robaxin] 500 mg PO HS@2100 PRN 08/25/18 04/13/19 Primidone [Mysoline] 50 mg PO DAILY 08/25/18 04/13/19 Ranitidine HCl 150 mg PO DAILY@1700 08/25/18 04/13/19 Levothyroxine Sodium [Synthroid] 88 mcg PO DAILY 01/06/19 04/13/19 Sertraline HCl [Zoloft] 50 mg PO DAILY 01/06/19 04/13/19 Hydrocodone/Acetaminophen [[employer] 1 tab PO TID 04/13/19 04/13/19 7.5-325] Allergies Allergy/AdvReac Type Severity Reaction Status Date / Time acetaminophen [From Percocet] AdvReac Chest Pain Verified 06/03/19 17:03 hydromorphone [From Dilaudid] AdvReac Vomiting Verified 06/03/19 17:03 oxycodone [From Percocet] AdvReac Chest Pain Verified 06/03/19 17:03 prednisone AdvReac Confusion Verified 06/03/19 17:03 Review of Systems ROS Statement: Those systems with pertinent positive or pertinent negative responses have been documented in the HPI. ROS Other: All systems not noted in ROS Statement are negative. 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 History of Any Multi-Drug Resistant Organisms: None Reported Past Surgical History: Breast Surgery, Hysterectomy Additional Past Surgical History / Comment(s): breast reduction, access port for chemo then removed Past Anesthesia/Blood Transfusion Reactions: No Reported Reaction Past Psychological History: Anxiety Smoking Status: Current every day smoker Past Alcohol Use History: None Reported Past Drug Use History: Marijuana - Past Family History Mother History Unknown: Yes Family Medical History: No Reported History General Exam - General Exam Comments Initial Comments: Constitutional: NAD, AOX3, Pt has pleasant affect. HEENT: NC/AT, trachea midline, neck supple, no lymphadenopathy. Posterior pharynx non erythematous, without exudates. External ears appear normal, without discharge. Mucous membranes moist. Eyes PERRLA, EOM intact. There is no scleral icterus. No pallor noted. Cardiopulmonary: RRR, no murmurs, rubs or gallops, no JVD noted. Lungs CTAB in anterior and posterior simmons. No peripheral edema. Abdominal exam: Abdomen soft and non-distended. Abdomen non-tender to palpation in all 4 quadrants. Bowel sounds active in LLQ. No hepatosplenomegaly. No ecchymosis Neuro: CN II-XII grossly intact. No nuchal rigidity. No raccon eyes, no ibarra sign, no hemotympanum. No cervical spinal tenderness. MSK: Sacral region mildly tender to palpation. Right straight leg raise positive. No skin changes. No thoracic or lumbar tenderness. Sensation intact. No posterior calf tenderness bilaterally, homans sign negative bilaterally. Posterior tibialis and radial pulse +2 bilaterally. Sensation intact in upper and lower extremities. Full active ROM in upper and lower extremities, 5/5 stregnth. Limitations: no limitations Course Vital Signs 06/03/19 06/03/19 06/03/19 17:01 19:14 19:45 Temperature 97.8 F Pulse Rate 105 H 62 Respiratory 22 18 16 Rate Blood Pressure 135/76 100/49 101/55 O2 Sat by Pulse 99 97 Oximetry Medical Decision Making - Medical Decision Making 58 old female patient this ED with chief complaint of chronic sacral and back pain. Patient vital signs are stable, afebrile. Patient denies any red flag symptoms. Strength intact neurovascularly intact. Sacral area mildly tender. Right straight leg raise positive. Patient reports that she cannot take steroids. Plain films are likely acute process. Urine negative. KUB negative. Patient symptoms are chronic. Patient feeling much improved with anti- inflammatory and pain medication. Patient discharged follow-up with pain management with return to ER if condition worsens. Case discussed with Dr. Kumar. - Lab Data Lab Results 06/03/19 Range/Units 18:43 Urine Color Yellow Urine Appearance Clear (Clear) Urine pH 5.5 (5.0-8.0) Ur Specific [place] 1.011 (1.001-1.035) Urine Protein Negative (Negative) Urine Glucose (UA) Negative (Negative) Urine Ketones Negative (Negative) Urine Blood Trace H (Negative) Urine Nitrite Negative (Negative) Urine Bilirubin Negative (Negative) Urine Urobilinogen <2.0 (<2.0) mg/dL Ur Leukocyte Esterase Trace H (Negative) Urine RBC 5 (0-5) /hpf Urine WBC 2 (0-5) /hpf Ur Squamous Epith Cells 1 (0-4) /hpf Urine Bacteria Rare H (None) /hpf Hyaline Casts 3 H (0-2) /lpf Urine Mucus Occasional H (None) /hpf Disposition Clinical Impression: Lumbar back pain, Sacral pain Disposition: HOME SELF-CARE Condition: Stable Instructions (If sedation given, give patient instructions): Acute Low Back Pain (ED), Chronic Back Pain (DC) Additional Instructions: Follow-up with primary care doctor and pain management doctor. Return to ER if condition worsens. Is patient prescribed a controlled substance at d/c from ED?: No Referrals: Casper Yeager DO [Primary Care Provider] - 1-2 days
[2019-06-03 18:52] LABS: Appearance,Urine Clear (Clear); Bacteria,Urine Rare /hpf; Bilirubin,Urine Negative (Negative); Blood,Urine Trace (Negative); Color,Urine Yellow; Glucose,Urine (UA) Negative (Negative); Hyaline Casts,Urine 3 /lpf (0-2); Ketones,Urine Negative (Negative); Leukocyte Esterase,Urine Trace (Negative); Mucus,Urine Occasional /hpf; Nitrite,Urine Negative (Negative); PH, Urine 5.5 (5.0-8.0); Protein,Urine Negative (Negative); RBC,Urine 5 /hpf (0-5); Specific Gravity,Urine 1.011 (1.001-1.035); Squamous Epithelial Cell,Urine 1 /hpf (0-4); Urobilinogen,Urine <2.0 mg/dL (<2.0)
[2019-06-03] MEDS ORDERED: KETOROLAC 60 MG/2 ML VIAL IM STA (19:05)
[2019-06-03 19:15] VITALS: PULSE 62
[2019-06-03] MEDS ORDERED: MORPHINE SULFATE 2 MG/ML SYRINGE IM STA (19:37)
[2019-06-03 19:46] VITALS: BP 101/55; RESP 16
--- NOTE | 2019-06-03 19:46 | XR ---
EXAMINATION TYPE: XR lumbar spine 2 or 3V DATE OF EXAM: 06/03/2019 COMPARISON: NONE HISTORY: Low back pain TECHNIQUE: 3 views FINDINGS: Lumbar vertebra have normal alignment. Disc spaces are fairly normal. Posterior elements ar e intact. Sacroiliac joints appear normal. IMPRESSION: Normal lumbar spine.
--- NOTE | 2019-06-03 19:46 | XR ---
EXAMINATION TYPE: XR KUB DATE OF EXAM: 06/03/2019 COMPARISON: NONE HISTORY: Back pain TECHNIQUE: Single view FINDINGS: Bowel gas pattern is normal. There is no sign of intestinal obstruction or pneumoperitoneum . Fecal pattern is normal. IMPRESSION: Nonacute abdomen.
--- NOTE | 2019-06-03 19:48 | XR ---
EXAMINATION TYPE: XR sacrum coccyx DATE OF EXAM: 06/03/2019 COMPARISON: NONE HISTORY: Back pain TECHNIQUE: 3 views FINDINGS: The segments have normal alignment. Lower lumbar spine is intact. Sacroiliac joints appear normal. IMPRESSION: Normal sacrum and coccyx exam. No fracture.
== END 2019-06-03 20:50 | disposition home or self-care (01) ==
LOC: EC 16:59
DX: M54.5 Low back pain (principal); M53.3 Sacrococcygeal disorders, not elsewhere classified; G89.29 Other chronic pain; M19.90 Unspecified osteoarthritis, unspecified site; E07.9 Disorder of thyroid, unspecified; F41.9 Anxiety disorder, unspecified; F17.200 Nicotine dependence, unspecified, uncomplicated; Z88.5 Allergy status to narcotic agent; Z88.6 Allergy status to analgesic agent; Z88.8 Allergy status to other drugs, medicaments and biological substances; Z79.890 Hormone replacement therapy; Z79.891 Long term (current) use of opiate analgesic; Z79.899 Other long term (current) drug therapy; Z85.72 Personal history of non-Hodgkin lymphomas; Z92.21 Personal history of antineoplastic chemotherapy; Z92.3 Personal history of irradiation; Z87.19 Personal history of other diseases of the digestive system
CPT/HCPCS: 81001; 72100; 72220; 74018; 99284; 96372 ×3; J2270 ×2; J1885